=== PATIENT | female | born 2000 | race Caucasian/White ===

== ENCOUNTER 2021-01-05 07:04 | Outpatient (CLI) | payer OTHER, MEDICAID, SELFPAY ==
--- NOTE | 2021-01-05 07:11 | US_ITS ---
NOTE: Report was unsigned for reason: Order was edited. Original Signature date and time was: 01/05/21 @ 0917 WS: [id number] ULTRASOUND OB LIMITED TECHNIQUE: Complete ultrasound. CLINICAL INFORMATION: SUPERVISION NORMAL COMPARISON: None. FINDINGS: Cervix measures 3.5 CM. Single interuterine gestation is identified with vertex presentation. Placenta is anterior. Placenta grade 0. Normal amniotic fluid volume. cardiac activity: 150 BPM. AGA: 15w0d PRAVIN by ultrasound: 06/29/2021 Estimated weight: 109 g., %. BDP: 2.9 cm = 15w1d HC: 11.1 cm = 15w2d AC: 8.8 cm = 15w0d FEMUR LENGTH: 1.6 cm = 14w4d MTDD US/US OB >= 14 weeks fetus [id number] IMPRESSION: 1. Single intrauterine with visualized cardiac activity. AGA 15w0d w ith PRAVIN 06/29/2021. 2. Cervix is long and closed. 3. Placenta is anterior. No evidence of abruption or previa.. 4. Normal amniotic fluid volume.
== END 2021-01-05 07:05 | disposition home or self-care (01) ==
PROVIDERS: PCP Nurse Practitioner; Visit Provider Family Medicine
DX: Z34.00 Encounter for supervision of normal first pregnancy, unspecified trimester (principal)
CPT/HCPCS: 76801; 76805

== ENCOUNTER 2021-01-28 12:32 | Outpatient (CLI) | payer OTHER, MEDICAID, SELFPAY ==
--- NOTE | 2021-01-28 12:38 | US_ITS ---
WS: [id number] OBSTETRICAL ULTRASOUND COMPLETE HISTORY: ANATOMY COMPARISON: 01/05/2021 Single intrauterine gestation in Cephalic presentation. Cervix is Closed and normal length. Cervical length is 3.8 cm. Normal amount of amniotic fluid surrounds the fetus. Placenta: Anterior, no previa or abruption. Placenta grade 0 Heart: 157 BPM. Four chambers are identified. RIGHT and LEFT outflow tracts are unremarkable. Anatomy: Intracranial structures and spine are normal. kidneys, stomach and urinary bladd er are unremarkable. Abdominal wall, three-vessel cord and cord insertion site are normal. 4 extremities are present. profile: Unremarkable. Gender: Female. measurements: BPD = 4.1 cm = 18w3d HC = 15.4 cm = 18w3d AC = 12.0 cm = 17w5d FL = 2.5 cm = 17w5d EFW: 210 g. Biometry is internally concordant. AGA by ultrasound: 18w1d PRAVIN by ultrasound: 06/30/2021 US/US OB >= 14 weeks fetus [id number] IMPRESSION: 1. Single intrauterine gestation of 18w1d with an PRAVIN of 06/30/2021. Appropria te growth since the first trimester ultrasound. 2. Unremarkable screening survey of anatomy.
== END 2021-01-28 12:33 | disposition home or self-care (01) ==
LOC: RAD 12:34
PROVIDERS: PCP Nurse Practitioner; Visit Provider Family Medicine
DX: Z34.82 Encounter for supervision of other normal pregnancy, second trimester; Z3A.18 18 weeks gestation of pregnancy
CPT/HCPCS: 76805

== ENCOUNTER 2021-05-26 12:32 | Outpatient (CLI) | payer OTHER, MEDICAID, SELFPAY ==
[2021-05-26] VITALS (8 sets, daily range): BP systolic 87–142; BP diastolic 54–91; PULSE 90–210; RESP 17; TEMP 36.6; BMI 37.8
--- NOTE | 2021-05-26 13:01 | US_ITS ---
WS: [id number] BIOPHYSICAL PROFILE AMNIOTIC FLUID HISTORY: BPP and JOSE. Maternal hypertension COMPARISON: 01/28/2021 Cardiac activity: 164 bpm. Cervix: Obscured by the head. Placenta: Anterior, no previa or abruption. Placenta grade: 2 Parameters are as follows: Breathin Movement: 2 Tone: 2 Fluid volume: 2 Amniotic fluid index 17.2 cm which is near the 50th percentile. Largest vertical pocket of amniotic f luid 5.8 cm. US/US OB BPP wo NST [id number] IMPRESSION: 1. Biophysical profile score: 8/8. 2. Normal amniotic fluid index. 3. Normal cardiac activity.
[2021-05-26 13:29] LABS: Basophils % 0.3 %; Eosinophils # 0.1 10^3/uL (0.0-0.8); Eosinophils % 0.7 %; Hematocrit 32.6 % (37.0-47.0); Hemoglobin 10.5 g/dL (11.5-15.3); Lymphocytes # 0.9 10^3/uL (0.8-4.8); Lymphocytes % 12.2 %; Mean Corpuscular HGB Conc 32.2 g/dL (30.0-36.0); Mean Corpuscular Volume 86.9 fl (81-99); Mean Platelet Volume 10.6 fL (7.4-10.4); Monocytes # 0.5 10^3/uL (0.2-0.9); Monocytes % 7.6 %; Neutrophils # 5.51 10^3/uL (1.8-7.7); Neutrophils % 78.1 %; Nucleated Red Blood Cells % 0 %; Platelet Count 196 10^3/cmm (130-400); Red Blood Count 3.75 10^6/uL (4.1-5.3); Red Cell Distribution Width 17.3 % (12.1-15.1); White Blood Count 7.1 10^3/uL (4.0-10.0)
[2021-05-26 13:53] LABS: Alanine Aminotransferase 10 U/L (0-33); Albumin Level 3.7 g/dL (3.5-5.2); Alkaline Phosphatase 151 IU/L (35-105); Anion Gap 18.1 (5-19); Aspartate Amino Transferase 15 U/L (0-32); Blood Urea Nitrogen 7 mg/dL (6-20); Calcium 9.6 mg/dL (8.5-10.5); Carbon Dioxide 18 mmol/L (22-29); Chloride 105 mmol/L (98-107); Globulin 2.9 g/dL (1.3-4.6); Glomerular Filtration Rate 201.5 mL/min (90-130); Glucose 114 mg/dL (65-115); Osmolality Calculated 283 mOsm/kg (285-295); Potassium 4.1 mmol/L (3.5-5.1); Sodium 137 mmol/L (136-145); Total Bilirubin 0.2 mg/dL (0.15-1.2); Total Protein 6.6 g/dL (6.6-8.7); Uric Acid 4.7 mg/dL (2.4-5.7)
[2021-05-26 14:05] LABS: Add Urine Microscopic? YES; Bacteria Urine 2+ /hpf; Bilirubin Urine Neg (Negative); Blood Urine Neg (Negative); Glucose Urine UA 1+ (Normal); Ketones Urine Negative (Negative); Leukocyte Esterase Urine Negative (Negative); Mucus Urine 1+ /hpf; Nitrate Urine Negative (Negative); Protein Urine Neg (Negative); Squamous Epithelial Cell Urine 55-80 /hpf (0-5); Urine Appearance Cloudy (CLEAR); Urine Color Yellow (Yellow); Urobilinogen Urine Norm (Negative); WBC Urine 0-4 /hpf (0-5); pH Urine 5 (5-7)
[2021-05-26 14:06] LABS: Add Urine Culture? No
[2021-05-26 14:29] LABS: UPRO/UCREAT Ratio 0.14 mg/mg CR; Urine Creatinine 98 mg/dL (28-217); Urine Protein Random 14 mg/dL
== END 2021-05-26 14:30 | disposition home or self-care (01) ==
LOC: OPOB 12:33 → OBGYN 12:34
PROVIDERS: PCP Nurse Practitioner; Visit Provider Family Medicine
DX: O16.9 Unspecified maternal hypertension, unspecified trimester (principal); Z3A.00 Weeks of gestation of pregnancy not specified
CPT/HCPCS: 59025; 76819; 80053; 81001; 82570; 84156; 84550; 85025; 99211

== ENCOUNTER 2021-05-29 16:20 | Outpatient (CLI) | payer MEDICAID, SELFPAY ==
[2021-05-29 17:06] LABS: Total Volume, Urine 2100 mL; Urine Total Protein 8.9 mg/24HR (0-150); Urine Total Protein 24 Hour 186.9 mg/dL (0-150)
== END 2021-05-29 16:21 | disposition home or self-care (01) ==
PROVIDERS: PCP Nurse Practitioner; Visit Provider Family Medicine
DX: O09.93 Supervision of high risk pregnancy, unspecified, third trimester (principal); O13.9 Gestational [pregnancy-induced] hypertension without significant proteinuria, unspecified trimester
CPT/HCPCS: 84156

== ENCOUNTER 2021-06-01 10:20 | Outpatient (CLI) | payer MEDICAID, SELFPAY ==
[2021-06-01] VITALS (11 sets, daily range): BP systolic 132–153; BP diastolic 76–91; PULSE 73–105; BMI 37.5
--- NOTE | 2021-06-01 10:57 | US_ITS ---
WS: [id number] ULTRASOUND OB LIMITED TECHNIQUE: Limited ultrasound examination of the fetus. CLINICAL INFORMATION: Hypertension COMPARISON: May 26, 2021 FINDINGS: Cervix is long and closed measuring 4.5 CM Single interuterine gestation. presentation is vertex Placental location is anterior. Placenta grade: 1 heart rate 144 BPM. Normal JOSE 18.4 cm Anatomy: BDP: 9.0 cm = 36w3d HC: 32.1 cm = 36w2d AC: 32.0 cm = 35w6d FEMUR LENGTH: 7.1 cm = 36w1d Estimated weight: 2833 g., %. EGA by ultrasound: 36w1d PRAVIN by ultrasound: 06/28/2021 Biophysical profile 8 out of 8. breathin movement: 2 tone: 2 Amniotic fluid: 2 IMPRESSION 1. Normal biophysical profile 8 out of 8 2. Cervix is long and closed. 3. presentation is vertex with anterior placenta. 4. Normal JOSE 18.4 cm greater than the 50th percentile
--- NOTE | 2021-06-01 11:55 | ANES.PREANE2 ---
Pre-Anesthetic Assessment Height/Weight: Height 1.57 m Weight 92.986 kg Pulse BP 83 135/76 06/01/21 11:45 06/01/21 11:45 Preop Diagnosis: Planning of labor analgesia Epidural Familial anesthetic complications: none Was Beta Wanda taken within 24 hours: N/A Was Clonidine taken within 24 hours: N/A Last intake: Full stomach Social No alcohol and No tobacco Exam alert, oriented x 3, clear to auscultation bilaterally and regular rate & rhythm Airway Submandibular: within normal limits Cervical ROM: within normal limits Mallampati: Class II Dentition: full History/ROS No significant complaints Pulmonary None reported CV/HEM Hypertension (Gestational HTN) None reported Hepatic None reported GI None reported Metabolic None reported Musc/skel None reported Neuropsych None reported Anesthetic Plan ASA status: 2 Anesthesia: Anesthesia Evaluation, General and Regional (specify below) (Labor epidural) Other: I discussed with patient the risk and benefits of labor epidural including PDPH, hypotension, back pain/discomfort/bruising, catastrophic nerve injury including paralysis, abscess, hematoma, failed block, one sided block, and LAST. Patient consents to labor epidural and in case of emergency consents to general anesthesia. Risk of > 500 ml blood loss (7ml/kg in children): No Medications/Allergies Home Medications Medication Instructions Recorded Confirmed Last Taken Type triamcinolone acetonide 0.1 % 1 applic TOPICAL TID 14 Days #80 g 07/23/20 07/23/20 Unknown Rx topical cream Allergies Allergy/AdvReac Type Severity Reaction Status Date / Time No Known Allergies Allergy Unverified 07/23/20 09:03 [facility] Anesthesia Social History Smoking and tobacco status: never smoked Second hand smoke exposure: No Smoking risk assessment/counseling performed?: No Alcohol intake: never Desire information about alcohol rehabilitation?: No Counseling given: No Desire information about substance/drug rehabilitation?: No Counseling given: No Adopted: No Caregiver/support person: No Lives independently: Yes Household members: family Housing: House Marital status: Single Number of children: 0 Highest education level completed: High School Graduate service: No Current occupational status: employed Pets and animals: No History of recent travel: No Female Reproductive History : 1 Data Anesthesia Cardiac Studies: No Data to Display
== END 2021-06-01 12:30 | disposition home or self-care (01) ==
LOC: OPOB 10:27 → OBGYN 10:28
PROVIDERS: PCP Nurse Practitioner; Visit Provider Family Medicine
DX: O16.9 Unspecified maternal hypertension, unspecified trimester (principal); Z3A.36 36 weeks gestation of pregnancy
CPT/HCPCS: 59025; 76819; 99211

== ENCOUNTER 2021-06-04 10:15 | Outpatient (CLI) | payer MEDICAID, SELFPAY ==
[2021-06-04 10:18] VITALS: BMI 37.5
[2021-06-04 10:30] VITALS: BP 132/85; PULSE 98
[2021-06-04 10:47] VITALS: RESP 17
--- NOTE | 2021-06-04 10:47 | US_ITS ---
WS: [id number] ULTRASOUND OB LIMITED TECHNIQUE: Limited ultrasound examination of the fetus. CLINICAL INFORMATION: Increased blood pressure COMPARISON: None. FINDINGS: Closed cervix measuring 5.1 cm Single interuterine gestation. presentation is vertex heart rate 141 BPM. EGA : 36 weeks 3 days PRAVIN : June 29, 2021 Biophysical profile 8 out of 8. breathin movement: 2 tone: 2 Amniotic fluid: 2 IMPRESSION 1. Normal biophysical profile 8 out of 8 2. Cervix not well seen but appears closed measuring 5.1 cm 3. presentation is vertex. 4. JOSE 15.0 cm just above the median for gestational age.
[2021-06-04 10:57] VITALS: BP 140/87; PULSE 93
[2021-06-04 11:13] VITALS: BP 120/75; PULSE 85
[2021-06-04 11:28] VITALS: BP 134/87; PULSE 88
[2021-06-04 11:42] VITALS: BP 136/87; PULSE 93
== END 2021-06-04 11:53 | disposition home or self-care (01) ==
LOC: OPOB 10:17 → OBGYN 10:19
PROVIDERS: PCP Nurse Practitioner; Visit Provider Family Medicine
DX: O16.9 Unspecified maternal hypertension, unspecified trimester (principal); Z3A.00 Weeks of gestation of pregnancy not specified
CPT/HCPCS: 59025; 76815; 76819; 99211

== ENCOUNTER 2021-06-08 05:58 | Inpatient (IN) | payer MEDICAID, SELFPAY ==
[2021-06-08] VITALS (49 sets, daily range): BP systolic 113–173; BP diastolic 72–104; PULSE 88–139; RESP 16–18; TEMP 36.2–36.8; BMI 38.0
[2021-06-08 07:00] LABS: Basophils % 0.5 %; Eosinophils # 0.1 10^3/uL (0.0-0.8); Eosinophils % 0.8 %; Hematocrit 32.2 % (37.0-47.0); Hemoglobin 10.6 g/dL (11.5-15.3); Lymphocytes # 1.1 10^3/uL (0.8-4.8); Lymphocytes % 13.3 %; Mean Corpuscular HGB Conc 32.9 g/dL (30.0-36.0); Mean Corpuscular Hemoglobin 27.9 pg (28.0-34.0); Mean Corpuscular Volume 84.7 fl (81-99); Monocytes # 0.6 10^3/uL (0.2-0.9); Monocytes % 7.5 %; Neutrophils % 76.2 %; Nucleated Red Blood Cells % 0 %; Platelet Count 168 10^3/cmm (130-400); Red Cell Distribution Width 16.7 % (12.1-15.1); White Blood Count 8.3 10^3/uL (4.0-10.0)
[2021-06-08] MEDS: miSOPROStol 100 mcg tablet 25 MCG VAGINAL ×2 (07:11→12:49)
[2021-06-08 07:17] LABS: Alanine Aminotransferase 9 U/L (0-33); Albumin Level 3.6 g/dL (3.5-5.2); Alkaline Phosphatase 175 IU/L (35-105); Anion Gap 19.7 (5-19); Aspartate Amino Transferase 16 U/L (0-32); Blood Urea Nitrogen 9 mg/dL (6-20); Calcium 9.4 mg/dL (8.5-10.5); Carbon Dioxide 17 mmol/L (22-29); Chloride 102 mmol/L (98-107); Globulin 3.1 g/dL (1.3-4.6); Glomerular Filtration Rate 155.7 mL/min (90-130); Glucose 134 mg/dL (65-115); Osmolality Calculated 281 mOsm/kg (285-295); Potassium 3.7 mmol/L (3.5-5.1); Sodium 135 mmol/L (136-145); Total Bilirubin 0.2 mg/dL (0.15-1.2); Total Protein 6.7 g/dL (6.6-8.7); Uric Acid 5.9 mg/dL (2.4-5.7)
--- NOTE | 2021-06-08 08:19 | P.HP_ITS ---
Providers/Chief Complaint Admitting Physician: Alex Emanuel MD Primary Care Provider: CARLOS TaylorP-C Chief Complaint: induction hypertension pre-e History of Present Illness Janneth Singleton is a 20 year old at 37.0 weeks gestation by 15-week ultrasound with unsure LMP. Her is complicated by COVID-19 in early first trimester, UTI in first trimester, anemia, rubella nonimmune, gestational hypertension with intermittent severe features. The patient presents to labor and delivery for induction of labor secondary to gestational hypertension with intermittent severe features. The patient has been having increasing headaches with flashes of lights that come and go. She was nauseous this morning. Her blood pressures have been running in the 130s to 150s systolic at home. Her 24-hour urine protein has been increasing and was 285 on 06/06/2021. She is also having significant swelling and brisk reflexes. Due to these findings, it was felt best to proceed with induction of labor to decrease risk for progressing to preeclampsia. The patient denies any fevers, chest pain, cough, vomiting, diarrhea, constipation, dysuria, leakage of fluid, vaginal bleeding. Medications/Allergies Home Medications Medication Instructions Recorded Confirmed Last Taken Type labetalol 100 mg tablet 50 mg PO BID 06/08/21 06/08/21 06/08/21 05:30 History vitamins no.144-folic 1 tab PO DAILY 06/08/21 06/08/21 06/07/21 23:00 History acid 400 mcg chewable tablet () Allergies Allergy/AdvReac Type Severity Reaction Status Date / Time No Known Allergies Allergy Verified 06/08/21 06:51 PFSH Acute PFSH: Social History Smoking and tobacco status: never smoked Second hand smoke exposure: No Smoking risk assessment/counseling performed?: No Alcohol intake: never Desire information about alcohol rehabilitation?: No Counseling given: No Desire information about substance/drug rehabilitation?: No Counseling given: No Adopted: No Caregiver/support person: No Lives independently: Yes Household members: family Housing: House Marital status: Single Number of children: 0 Highest education level completed: High School Graduate service: No Current occupational status: employed Pets and animals: No History of recent travel: No Female Reproductive History: : 1 Vitals/I&O/Wt Last Vital Signs Temp 97.2 F L 06/08/21 06:52 Pulse 93 06/08/21 08:13 Resp 18 06/08/21 07:50 BP 140/79 06/08/21 08:13 Weight last 48 hrs Weight 208 lb Physical Exam Narrative: General: Alert and oriented x3 Eyes: Pupils equal round and reactive to light and accommodation Mouth: Mucous membranes moist, pharynx non-erythematous Cardiac: Regular rate and rhythm without murmurs Lungs: Clear to auscultation bilaterally without wheezes, crackles or rhonchi Abdomen: Soft, non-tender, fundus consistent with gestational age Extremities: Trace edema in the bilateral lower extremities. Brisk reflexes in the bilateral lower extremities Data : 06/08/21 06:35 06/08/21 06:35 A&P Assessment and plan (1) Rubella non-immune status, antepartum: Status: Acute (2) Anemia: Status: Acute (3) Gestational hypertension: Status: Acute (4) Intrauterine : Status: Acute Plan The patient is doing well at this time. Her blood pressure is 140/79. heart tones are in the mid 140s with moderate variability and good accelerations. She is having sporadic contractions. The patient will be given Cytotec for induction of labor as she is closed, thick and high. Laboring epidural okay at 3 to 4 cm. Antihypertensive protocol will be started as needed. If she becomes more symptomatic or her blood pressures are increasing, we will start IV magnesium. All questions were answered. The patient is in agreement with the current plan of care. Attestations Medical Necessity Statement*: The patient will be here for greater than 2 midnights due to routine intrapartum and management of labor and delivery. Coding Level of Care Code Acute Online Facilitator for Chg Fwd Diagnoses Rubella non-immune status, antepartum O99.891; Z28.3 Anemia D64.9 Gestational hypertension O13.9 Intrauterine Z34.90
[2021-06-09] VITALS (193 sets, daily range): BP systolic 95–178; BP diastolic 49–114; PULSE 57–131; TEMP 36.4; O2SAT 96–100
[2021-06-09] MEDS: dextrose 5%-lactated ringers 1,000 ML 125 ML IV (01:31)
[2021-06-09] MEDS: oxytocin 30 UNIT/500 ML BAG IV (01:31)
--- NOTE | 2021-06-09 07:54 | P.PN_ITS ---
Subjective Subjective: The patient is feeling well. She denies any headaches. Her contractions are starting to increase in pain. They are still tolerable without pain medications. The patient received 2 doses of Cytotec and changed to 1 cm dilation with 70% effacement and her contractions continued to be close toget her. Because of this a third dose was not placed. Since she was no longer making change, IV Pitocin was started to augment labor. Vitals/I&O/Wt Last Vital Signs Temp 98.3 F 06/08/21 18:01 Pulse 84 06/09/21 07:51 Resp 18 06/08/21 18:45 BP 141/85 06/09/21 07:51 06/08/21 06/09/21 06/09/21 22:59 06:59 14:59 Intake Total 10.483 / 10.483 Balance 10.483 / 10.483 Weight last 48 hrs Weight 208 lb Physical Exam Narrative: General: Alert and oriented x3 Cardiac: Regular rate and rhythm without murmurs Lungs: Clear to auscultation bilaterally without wheezes, crackles or rhonchi Abdomen: Soft, non-tender, fundus consistent with gestational age Extremities: Trace edema in the bilateral lower extremities.? Brisk reflexes in the bilateral lower extremities Data : 06/08/21 06:35 06/08/21 06:35 A&P Assessment and plan (1) Rubella non-immune status, antepartum: Status: Acute (2) Anemia: Status: Acute (3) Gestational hypertension: Status: Acute (4) Intrauterine : Status: Acute Plan The patient is current on IV Pitocin at 9 units. She is brianna every 2 to 3 minutes. She has a category 1 tracing with heart tones in the mid 140s with moderate variability good accelerations. Blood pressures are currently in the 130s and 140s systolic. She does not have any severe features at this time. We will proceed with IV Pitocin. I checked her and she is currently 2 cm dilated and 70% effaced. The head is well applied and there is a bulging bag. If she does not make significant change by the afternoon, we may consider a Kowalski bulb. Will be patient with Pitocin for now. All questions answered the patient is in agreement with current plan of care. Attestations Medical Necessity Statement*: The patient continues to need inpatient care and will be here for greater than 2 midnights. Coding Level of Care Code Acute Charge Auditor for Chg Fwd Diagnoses Rubella non-immune status, antepartum O99.891; Z28.3 Anemia D64.9 Gestational hypertension O13.9 Intrauterine Z34.90
[2021-06-09] MEDS: butorphanol 2 mg/mL SDV 1 mL 1 MG IVP ×2 (10:42→15:35)
[2021-06-09] MEDS: lactated ringers 1,000 ML 999 ML IV ×2 (17:23→20:10)
--- NOTE | 2021-06-09 17:47 | P.ANESUD_ITS ---
Pre-Anesthetic Update Pre-Anesthetic Assessment: Date of Surgery/Procedure: 06/09/21 Preop Ángela gnosis: Planning of labor analgesia Any changes to Pre-Anesthetic Assessment?: No Labs Last 48hrs: Short CBC 06/08/21 Range/Units 06:35 WBC 8.3 (4.0-10.0) 10^3/ uL Hgb 10.6 L (11.5-15.3) g/dL Hct 32.2 L (37.0-47.0) % MCV 84.7 (81-99) fl Plt Count 168 (130-400) 10^3/c mm Neut % (Auto) 76.2 % Neut # (Auto) 6.30 (1.8-7.7) 10^3/u L BMP 06/08/21 06:35 Sodium 135 L Potassium 3.7 Chloride 102 Carbon Dioxide 17 L BUN 9 Creatinine 0.5 Glucose 134 H Calcium 9.4 Liver Function 06/08/21 Range/Units 06:35 Total Bilirubin 0.2 (0.15-1.2) mg/dL AST 16 (0-32) U/L ALT 9 (0-33) U/L Alkaline Phosphata se 175 H (35-105) IU/L Albumin 3.6 (3.5-5.2) g/dL Vitals: Temperature 98.3 F 06/08/21 18:01 Temperature Source Temporal Artery S can 06/08/21 06:52 Pulse Rate 76 06/09/21 17:46 Pulse Rhythm 06/08/21 05:57 Pulse Strength 3+ Normal 06/08/21 05:57 Respiratory Rate 18 06/08/21 18:45 Respiratory Effort Non-Labored 06/08/21 05:57 Respiratory Depth Normal 06/08/21 05:57 Respiratory Patter n 06/08/21 05:57 Blood Pressure 100/52 06/09/21 17:46 Pulse Oximetry 97 06/09/21 17:41 Oxygen Delivery Me thod 06/08/21 05:57 Exam: Pre-Anes Outpt Exam: alert, oriented x 3, clear to auscultation bilaterally and regular rate & rhythm Cardiac Studies: No Data to Display Anesthesia Procedures Epidural: Time Out Performed: Yes Consents Signed: Procedure Consent Lumbar Level: L3-L4 Epidural position: sitting Epidural procedure: sterile prep of area, 1% lidocaine to numb the area, 18 g needle, neg for paresthesia, test dose given, 1.5% xylocaine 1:200k epi, no systemic response and sterile dressing applied Additional Comments: LIANNE at 7cm, cath at 9cm, 5mls of 2%lido PF through needle....when catheter passed palpable pop felt, able to aspirate fluid , pulled back to 9cm unable to aspirate fluid but I question SAB catheter b/c patient with symptoms of spinal difficult to tell if from loading dose through needle or test dose of catheter. Will reassess.
--- NOTE | 2021-06-09 20:37 | P.ANES_ITS ---
Anesthesia Procedures Procedure/Date: 06/09/21 Epidural: Time Out Performed: Yes Consents Signed: Procedure Consent Consent: from patient, risks and benefits reviewed and patient agrees to proceed Lumbar Level: L3-L4 Epidural position: sitting Epidural procedure: sterile prep of area, 1% lidocaine to numb the area, 18 g needle, neg for parest hesia, test dose given, 1.5% xylocaine 1:200k epi, 0.2% Ropivacaine bolus ml, placed PCEA, no systemic response, sterile dressing applied, L.U.D. no apparent complications and 0.2% Ropiavacaine @ mls/hr (13cc/hour)
[2021-06-10] VITALS (67 sets, daily range): BP systolic 110–204; BP diastolic 18–109; PULSE 83–127; RESP 16–20; TEMP 36.1–37.3; O2SAT 96–99
[2021-06-10] MEDS: diphenhydrAMINE 50 mg/mL SDV 1mL IVP (01:20)
[2021-06-10] MEDS: labetalol 5 mg/mL SDV 20mL 20 MG IVP (01:32)
[2021-06-10] MEDS: dextrose 5%-lactated ringers 1,000 ML 125 ML IV (02:20)
--- NOTE | 2021-06-10 05:07 | P.MISC_ITS ---
Miscellaneous Note Note: The patient has made slow change throughout the labor process. She was 4 cm dilated at 7:30 PM on 06/09/2021. She made gradual change and was 9 cm by 1:50 AM on 06/10/2021. Unfortunately she is now stalling and no longer making cervical change. We have tried multiple position changes and despite this, she remains at anterior lip and -1 station with contraction. Due to the concerns that there could be cephalopelvic disproportion, increased risk for shoulder dystocia and for third or fourth degree laceration, it is felt best to proceed with a primary low transverse section. heart tones are in the mid 150s with moderate variability good accelerations. The has a cat egory 1 tracing. The patient is in agreement with proceeding with a section. The indication is arrest of dilation.
[2021-06-10] MEDS: lactated ringers 1,000 ML 999 ML IV (05:22)
[2021-06-10] MEDS: citric acid-sodium citrate 30 mL UDC PO (05:36)
[2021-06-10] MEDS: metoclopramide 5 mg/mL SDV 2 mL 10 MG IVP (05:36)
[2021-06-10] MEDS: famotidine 20 mg/2 mL INJ IVP (05:36)
--- NOTE | 2021-06-10 06:39 | P.ANESUD_ITS ---
Pre-Anesthetic Update Pre-Anesthetic Assessment: Date of Surgery/Procedure: 06/10/21 Preop Ángela gnosis: Planning of labor analgesia Proposed Procedure: Operation Date: 06/10/21 06:10 Proposed Procedures p Section(Not Applicable) - Alex Emanuel MD Any changes to Pre-Anesthetic Assessment?: Yes Changes from Pre-Anesthetic Assessment: Laboring patient with epidural to C/S Labs Last 48hrs: Short CBC 06/08/21 Range/Units 06:35 WBC 8.3 (4.0-10.0) 10^3/ uL Hgb 10.6 L (11.5-15.3) g/dL Hct 32.2 L (37.0-47.0) % MCV 84.7 (81-99) fl Plt Count 168 (130-400) 10^3/c mm Neut % (Auto) 76.2 % Neut # (Auto) 6.30 (1.8-7.7) 10^3/u L BMP 06/08/21 06:35 Sodium 135 L Potassium 3.7 Chloride 102 Carbon Dioxide 17 L BUN 9 Creatinine 0.5 Glucose 134 H Calcium 9.4 Liver Function 06/08/21 Range/Units 06:35 Total Bilirubin 0.2 (0.15-1.2) mg/dL AST 16 (0-32) U/L ALT 9 (0-33) U/L Alkaline Phosphata se 175 H (35-105) IU/L Albumin 3.6 (3.5-5.2) g/dL Vitals: Temperature 99.2 F 06/10/21 00:32 Temperature Source Axillary 06/10/21 00:32 Pulse Rate 98 06/10/21 05:38 Pulse Rhythm 06/08/21 05:57 Pulse Strength 3+ Normal 06/08/21 05:57 Respiratory Rate 18 06/08/21 18:45 Respiratory Effort Non-Labored 06/08/21 05:57 Respiratory Depth Normal 06/08/21 05:57 Respiratory Patter n 06/08/21 05:57 Blood Pressure 166/88 06/10/21 05:38 Pulse Oximetry 99 06/09/21 23:04 Oxygen Delivery Me thod 06/08/21 05:57 Exam: Pre-Anes Outpt Exam: alert, oriented x 3, clear to auscultation bilaterally and regular rate & rhythm Cardiac Studies: No Data to Display
[2021-06-10] MEDS: clindamycin 900 MG/50 ML PREMIX 100 MG IV ×3 (06:59→23:52)
--- NOTE | 2021-06-10 08:00 | P.OP_ITS ---
Operative Report Date of procedure: June 10, 2021 Pre-op diagnosis: 1. Intrauterine at 37.2 weeks gestation 2. COVID-19 in early first trimester 3. UTI in first trimester 4. Anemia 5. Rubella nonimmune 6. Gestational hypertension with intermittent severe features 7. Arrest of dilation with concern for OP positioning versus cephalo-pelvic disproportion Preop Diagnosis Planning of labor analgesia Post-op diagnosis: 1. Intrauterine status post primary low transverse section at 37.2 wee primary gestation 2. COVID-19 in early first trimester 3. UTI in first trimester 4. Anemia 5. Rubella nonimmune 6. Gestational hypertension with intermittent severe features 7. Arrest of dilation secondary to OP positioning of head 8. Delivery of female weighing 6 pounds 3 ounces Procedure done: Primary low transverse section Surgeon: Alex Emanuel MD Estimated blood loss: 1000 ml Complications: None Findings: Janneth Singleton is a 20 year old G1 now P1 status post primary low transverse section at 37.0 weeks gestation by 15-week ultrasound with unsure LMP.? Her was complicated by COVID-19 in early first trimester, UTI in first trimester, anemia, rubella nonimmune, gestational hypertension with intermittent severe features. 1. OP positioning of head 2. Intact placenta with a central umbilical cord insertion site 3. female needing respiratory support most likely due to TTN Brief History: The patient was brought in for induction of labor on the morning of 06/08/2021 due to gestational hypertension with intermittent severe features. She was given 2 doses of Cytotec and began to contract regularly. The patient was then given IV Pitocin to augment labor. She received a laboring epidural. She was comfortable from this. SROM took place at 15:40 on 06/09/2021. The fluid was clear. The patient continued to make slow but steady change and was 9 cm by 1:50 AM on 06/10/2021.? Unfortunately she no longer made cervical change.? We tried multiple position changes and despite this, she remained an anterior lip and -1 station with contractions. Due to the concerns that there could be cephalopelvic disproportion, increased risk for shoulder dystocia and other related complications, it was felt best to proceed with a primary low transverse section.? heart tones were in the mid 150s with moderate variability good accelerations.? The had a category 1 tracing.? Procedure: After informed consent was obtained, the patient was taken to the operating room and the patient was prepped and draped in a normal sterile fashion in the dorsal supine position.? The epidural was bolused and adequate anesthesia was obtained.? At 6:04 AM on 06/10/2021 a Pfannenstiel skin incision was made and carried through to the underlying layer of fascia using a scalpel.? The fascial incision was then extended laterally using curved Mayos.? The fascia was then grasped with Dez clamps and the underlying rectus muscles were dissected off taking care to avoid injury to the underlying tissues.? The peritoneum was entered bluntly with one digit.? It was then bluntly.? The bladder blade was placed and the vesicouterine peritoneum was well below the lower uterine segment of the uterus.? The uterine incision was made in the lower uterine segment in a transverse fashion with the scalpel at 6:08 AM. The amniotic membrane was entered bluntly and a small amount of clear fluid was noted.? Uterine pressure was placed and the infant's head delivered without complication at 6:09 AM on 06/10/2021. The head was noted to be in the OP position. There was no nuchal cord.? The mouth and nose were suctioned.? The rest of the infant delivered without difficulty.? The infant took a few breaths immediately upon delivery.? The cord was clamped and cut and the infant was handed to the awaiting pediatric nurses.? The placenta was then manually expressed.? The uterus was exteriorized from the abdomen. A wet lap was used to clear the uterus of clots and debris.? The bladder blade was reinserted and the uterine incision was closed using 0 chromic in a running locking fashion.? The uterus was noted to be boggy, so TXA was given. The uterus did firm up shortly after this. A second layer of the same suture was used in the same manner.? Excellent hemostasis was obtained. Next the posterior cul-de-sac was inspected and was cleared of any blood. The gutters were cleared of any further clots and debris and the uterine incision was again inspected and hemostasis was noted.? The subfascial tissue was inspected for hemostasis and the peritoneum was re-approximated using 0 chromic in a running fashion.? The fascia was then re-approximated using 0 Vicryl in a running fashion.? The subcutaneous tissue was inspected for hemostasis.? Scarp a's fascia was then re-approximated using 3-0 plain in a running fashion.? Good hemostasis was noted.? The subcutaneous tissue was then re-approximated using a subcuticular stitch.? The patient tolerated the procedure well and was recovered in stable condition.? Estimated blood loss was 1000 mL. Urine in the Kowalski catheter was clear. The patient was taken to recovery in good condition.
[2021-06-10] MEDS: magnesium sulfate premix 4 GM/100 ML PREMIX IV (08:22)
[2021-06-10] MEDS: magnesium sulfate premix 20 GM/500 ML BAG IV ×2 (08:42→18:58)
[2021-06-10 10:47] LABS: Magnesium Level (OB Only) 3.6 mg/dL (5.0-7.5)
[2021-06-10] MEDS: ketorolac 30 mg/mL INJ IVP ×2 (11:35→18:57)
[2021-06-10] MEDS: dextrose 5%-lactated ringers 1,000 ML 75 ML IV (15:46)
[2021-06-10] MEDS: ferrous sulfate EC 325 mg Tablet PO (18:58)
[2021-06-10 23:22] LABS: Magnesium Level (OB Only) 6.9 mg/dL (5.0-7.5)
[2021-06-11] VITALS (12 sets, daily range): BP systolic 112–136; BP diastolic 68–91; PULSE 85–102; RESP 14–17; TEMP 36.5–36.9; O2SAT 96–99
[2021-06-11 00:31] LABS: Hematocrit 25.5 % (37.0-47.0); Hemoglobin 8.3 g/dL (11.5-15.3); Mean Corpuscular HGB Conc 32.5 g/dL (30.0-36.0); Mean Corpuscular Hemoglobin 27.7 pg (28.0-34.0); White Blood Count 12.1 10^3/uL (4.0-10.0)
[2021-06-11 00:32] LABS: Mean Platelet Volume 10.9 fL (7.4-10.4); Platelet Count 162 10^3/cmm (130-400); Red Cell Distribution Width 17.2 % (12.1-15.1)
[2021-06-11] MEDS: ketorolac 30 mg/mL INJ IVP (01:37)
[2021-06-11 05:14] LABS: Magnesium Level (OB Only) 7.1 mg/dL (5.0-7.5)
[2021-06-11] MEDS: dextrose 5%-lactated ringers 1,000 ML 75 ML IV (05:33)
[2021-06-11] MEDS: magnesium sulfate premix 20 GM/500 ML BAG IV (05:33)
[2021-06-11] MEDS: prenatal vitamin Capsule 1 CAP PO (08:18)
[2021-06-11] MEDS: ferrous sulfate EC 325 mg Tablet PO ×2 (08:19→17:46)
[2021-06-11] MEDS: docusate sodium 100 mg Capsule PO ×2 (08:19→17:46)
[2021-06-11] MEDS: clindamycin 900 MG/50 ML PREMIX 100 MG IV (08:22)
--- NOTE | 2021-06-11 08:32 | ANE.PACU2 ---
Inpatient post-anesthesia follow up: Airway intact: Yes Vital signs: Temperature 97.7 F Pulse Rate 94 Respiratory Rate 16 Blood Pressure 129/77 Pulse Oximetry 96 Oxygen Delivery Me thod Room Air Oxygen Flow Rate Fraction of Inspir ed Oxygen Hydration adequate: Yes Nausea and vomiting: No Pain level: 2 Mental status: Baseline Additional Comments: No c/o of postural H/A, discussed possibility of PDPH and treatment since obvious intrathecal cath placement on initial epidural placement
[2021-06-11] MEDS: oxyCODONE-APAP 5-325 mg Tablet PO (12:44)
--- NOTE | 2021-06-11 18:18 | PM.PN ---
Subjective Subjective: The patient was placed on IV magnesium shortly after delivery as her pressures were elevating again. She was kept on this for 24 hours. Her blood pressures have improved and her urine output is increasing well. She is starting to ambulate. She is not voiding since having the catheter out. She has not passed gas yet. She is tolerating liquids currently. Her bleeding is decreasing well. Her pain is well controlled. Vitals/I&O/Wt Last Vital Signs Temp 98.0 F 06/11/21 15:53 Pulse 95 06/11/21 15:53 Resp 16 06/11/21 15:53 BP 112/68 06/11/21 15:53 Pulse Ox 98 06/11/21 15:53 06/11/21 06/11/21 06/11/21 06:59 14:59 22:59 Intake Total 1550 / 3400 50 / 50 Output Total 1255 / 5455 1800 / 1800 200 / 2000 Balance 295 / -2055 -1750 / -1750 -200 / -1950 Physical Exam Narrative: General: Alert and oriented x3 Cardiac: Regular rate and rhythm without murmurs Lungs: Clear to auscultation bilaterally without wheezes, crackles or rhonchi Abdomen: Soft, mild tenderness over uterus. The uterus is firm and 2 cm below the umbilicus. Incision is clean and dry without signs of infection or dehiscence. Extremities: +1 pitting edema in the bilateral lower extremities Urinary Catheter Management: Kowalski: Cath Placed During This Visit: yes, but has since been removed by the nurse Reason for Continuing Indwelling Catheter: Decision to DC Catheter Urinary Catheter Date of Insertion: 06/09/21 Urinary Catheter Time of Insertion: 19:13 Date Urinary Catheter Removed: 06/11/21 Time Urinary Catheter Discontinued: 12:30 Data : 06/10/21 23:48 06/08/21 06:35 A&P Assessment and plan (1) Gestational hypertension: Status: Acute Qualifiers: Trimester: third trimester Qualified Code(s): O13.3 - Gestational [-induced] hypertension without significant proteinuria, third trimester (2) Delivery by section: Status: Acute (3) Anemia: The patient's hemoglobin decreased from 10.6 to 8.3. We will start iron twice a day and follow. Status: Acute (4) Rubella non-immune status, antepartum: Status: Acute Plan The patient was started on IV magnesium and this was stopped at 24 hours. She is doing well off of the magnesium at this time. She is still not voided yet or passed gas. We will watch for these to happen. Her blood pressures are currently well controlled. She was given IV clindamycin for 24 hours to decrease risk for secondary infection secondary to having rupture of membranes prior to delivery by . So far she is showing no signs of infection. We will plan to follow and discharge home tomorrow or Monday depending on her course. Routine care discussed. All questions were answered. Attestations Medical Necessity Statement*: The patient will be here for greater than 2 midnights due to routine post care and management after gestational hypertension with intermittent severe features.. 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
[2021-06-11] MEDS: ibuprofen 800 mg tablet PO (21:54)
[2021-06-12 04:13] VITALS: BP 110/73; PULSE 90; RESP 16; TEMP 36.6; O2SAT 96
--- NOTE | 2021-06-12 08:54 | P.DS_ITS ---
Discharge Providers Date of Admission: 06/08/21 05:58 Date of Discharge: June 12, 2021 Attending Provider at Admission: Alex Emanuel MD Attending Provider at Discharge: Alex Emanuel MD Primary Care Provider: NIRAJ Taylor Diagnoses at Discharge Discharge Diagnosis (1) Gestational hypertension: Status: Acute Qualifiers: Trimester: third trimester Qualified Code(s): O13.3 - Gestational [-induced] hypertension without significant proteinuria, third trimest er (2) Delivery by section: Status: Inactive Permanent problem details: Due to OP head positioning (3) Anemia: Status: Acute (4) Rubella non-immune status, antepartum: Status: Acute Other Information Additional DC diagnoses/information: 1.? Intrauterine status post primary low transverse section at 37.2 wee primary gestation 2.? COVID-19 in early first trimester 3.? UTI in first trimester 4.? Anemia 5.? Rubella nonimmune 6.? Gestational hypertension with intermittent severe features 7.? Arrest of dilation secondary to OP positioning of head 8.? Delivery of female weighing 6 pounds 3 ounces Janneth Singleton is a 20 year old G1 now P1 status post primary low transverse section at 37.0 weeks gestation by 15-week ultrasound with unsure LMP.? Her was complicated by COVID-19 in early first trimester, UTI in first trimester, anemia, rubella nonimmune, gestational hypertension with intermittent severe features. 1.? OP positioning of head 2.? Intact placenta with a central umbilical cord insertion site 3.? female needing respiratory support most likely due to TTN Brief History: ? Reason for Visit Reason for Visit: induction hypertension pre-e Hospital Course Hospital Course The patient was brought in for induction of labor on the morning of 06/08/2021 due to gestational hypertension with intermittent severe features.? She was given 2 doses of Cytotec and began to contract regularly.? The patient was then given IV Pitocin to augment labor.? She received a laboring epidural.? She was comfortable from this.? SROM took place at 15:40 on 06/09/2021.? The fluid was clear.? The patient continued to make slow but steady change and was 9 cm by 1:50 AM on 06/10/2021.? Unfortunately she no longer made cervical change.? We tr ied multiple position changes and despite this, she remained an anterior lip and -1 station with contractions. Due to the concerns that there could be cephalopelvic disproportion, increased risk for shoulder dystocia and other related complications, it was felt best to proceed with a primary low transverse section.? heart tones were in the mid 150s with moderate variability and good accelerations.? The had a category 1 tracing. The patient had a primary low transverse section and did not have any significant complications related to this. The patient is doing well and her bleeding is well controlled. Her incision site is clean and dry without signs of infection or dehiscence. Her pain is under good control. She is ambulating, voiding, and tolerating liquids by mouth. We will check to be sure that she is able to tolerate solids prior to discharge. Routine discharge instructions were discussed including care. All questions were a nswered. The patient is in agreement with discharge home this afternoon as long as she is tolerating food by mouth. She will follow-up with me in clinic for the next few days to follow-up on her blood pressure and incision site. Physical Exam Narrative: General: Alert and oriented x3 Cardiac: Regular rate and rhythm without murmurs Lungs: Clear to auscultation bilaterally without wheezes, crackles or rhonchi Abdomen: Soft, mild tenderness over uterus.? The uterus is firm and 2 cm below the umbilicus.? Incision is clean and dry without signs of infection or dehiscence. Extremities: +1 pitting edema in the bilateral lower extremities Urinary Catheter Management: Kowalski: Cath Placed During This Visit: yes, but has since been removed by the nurse Reason for Continuing Indwelling Catheter: Decision to DC Catheter Urinary Catheter Date of Insertion: 06/09/21 Urinary Catheter Time of Insertion: 19:13 Date Urinary Catheter Removed: 06/11/21 Time Urinary Catheter Discontinued: 12:30 Discharge Data Studies Completed and Pending Laboratory Results WBC 12.1 10^3/uL (4.0-10.0) H 06/10/21 23:48 RBC 3.00 10^6/uL (4.1-5.3) L 06/10/21 23:48 Hgb 8.3 g/dL (11.5-15.3) L 06/10/21 23:48 Hct 25.5 % (37.0-47.0) L 06/10/21 23:48 MCV 85.0 fl (81-99) 06/10/21 23:48 MCH 27.7 pg (28.0-34.0) L 06/10/21 23:48 MCHC 32.5 g/dL (30.0-36.0) 06/10/21 23:48 RDW 17.2 % (12.1-15.1) H 06/10/21 23:48 Plt Count 162 10^3/cmm (130-400) 06/10/21 23:48 MPV 10.9 fL (7.4-10.4) H 06/10/21 23:48 Neut % (Auto) 76.2 % 06/08/21 06:35 Lymph % (Auto) 13.3 % 06/08/21 06:35 Tate % (Auto) 7.5 % 06/08/21 06:35 Eos % (Auto) 0.8 % 06/08/21 06:35 Baso % (Auto) 0.5 % 06/08/21 06:35 Neut # (Auto) 6.30 10^3/uL (1.8-7.7) 06/08/21 06:35 Lymph # (Auto) 1.1 10^3/uL (0.8-4.8) 06/08/21 06:35 Tate # (Auto) 0.6 10^3/uL (0.2-0.9) 06/08/21 06:35 Eos # (Auto) 0.1 10^3/uL (0.0-0.8) 06/08/21 06:35 Baso # (Auto) 0.0 10^3/uL (0.0-0.1) 06/08/21 06:35 Nucleated RBC % (auto) 0 % 06/08/21 06:35 Nucleated RBCs # 0.0 /100WBC 06/08/21 06:35 Sodium 135 mmol/L (136-145) L 06/08/21 06:35 Potassium 3.7 mmol/L (3.5-5.1) 06/08/21 06:35 Chloride 102 mmol/L (98-107) 06/08/21 06:35 Carbon Dioxide 17 mmol/L (22-29) L 06/08/21 06:35 Anion Gap 19.7 (5-19) H 06/08/21 06:35 BUN 9 mg/dL (6-20) 06/08/21 06:35 Creatinine 0.5 mg/dL (0.5-0.9) 06/08/21 06:35 GFR Calculation 155.7 mL/min (90-130) H 06/08/21 06:35 Glucose 134 mg/dL (65-115) H 06/08/21 06:35 Calculated Osmolality 281 mOsm/kg (285-295) L 06/08/21 06:35 Uric Acid 5.9 mg/dL (2.4-5.7) H 06/08/21 06:35 Calcium 9.4 mg/dL (8.5-10.5) 06/08/21 06:35 Magnesium 7.1 mg/dL (5.0-7.5) 06/11/21 04:25 Total Bilirubin 0.2 mg/dL (0.15-1.2) 06/08/21 06:35 AST 16 U/L (0-32) 06/08/21 06:35 ALT 9 U/L (0-33) 06/08/21 06:35 Alkaline Phosphatase 175 IU/L (35-105) H 06/08/21 06:35 Total Protein 6.7 g/dL (6.6-8.7) 06/08/21 06:35 Albumin 3.6 g/dL (3.5-5.2) 06/08/21 06:35 Globulin 3.1 g/dL (1.3-4.6) 06/08/21 06:35 Vitals Last Vital Signs Temp 97.9 F 06/12/21 04:13 Pulse 90 06/12/21 04:13 Resp 16 06/12/21 04:13 BP 110/73 06/12/21 04:13 Pulse Ox 96 06/12/21 04:13 Discharge Plan Discharge Patient Disposition: Home Condition: Good Prescriptions: New oxycodone-acetaminophen 5-325 mg Tablet 1 tab PO Q6H PRN (Reason: Moderate To Severe Pain) Qty: 20 0RF docusate sodium 100 mg Capsule 100 mg PO BID Qty: 30 0RF ferrous sulfate 325 mg (65 mg iron) Tablet,Delayed Release (Dr/Ec) 325 mg PO BIDWM Qty: 60 0RF ibuprofen 800 mg Tablet 800 mg PO TID Qty: 60 0RF Continued 400 mcg Tablet,Chewable 1 tab PO DAILY 0RF Discontinued labetalol 100 mg tablet 50 mg PO BID 0RF Discharge Orders: Discharge Order (Routine); Ordered 06/12/21 Ordered By: Alex Emanuel Referrals: Alex Emanuel MD [Physician] - 1-3 days Discharge Diet: Regular Discharge Activity: Limit activity as instructed Patient Instructions: Depression (DC), Bleeding (DC), P reeclampsia and Eclampsia After Delivery (GEN), (DC), OB Discharge Report, OB Food/Drug Interaction Guide, OB Care at Home, Opioid Safety, OB Home Care, OB [facility], Abnormal Bleeding Activity Restrictions/Additional Instructions: Do not lift anything heavier than your infant in the car seat for the first 3 we eks, then gradually increase. No driving for 2 weeks. If you have any concern for infection in your incision site, please seek immediate medical attention. Nothing per vagina for 6 weeks. Discharge Attestations Time Spent in Discharge Care*: greater than 30 min Quality Metrics Clinical Quality Measures [ No reported AMI, CVA or VTE this stay] Coding Level of Care Code Acute Chg FW DC note Diagnoses Gestational hypertension O13.3 Trimester: third trimester Delivery by section Anemia D64.9 Rubella non-immune status, antepartum O99.891; Z28.3
[2021-06-12 09:09] VITALS: RESP 18
[2021-06-12] MEDS: oxyCODONE-APAP 5-325 mg Tablet PO (09:09)
[2021-06-12] MEDS: ibuprofen 800 mg tablet PO (09:09)
[2021-06-12] MEDS: prenatal vitamin Capsule 1 CAP PO (09:09)
[2021-06-12] MEDS: docusate sodium 100 mg Capsule PO (09:09)
[2021-06-12] MEDS: ferrous sulfate EC 325 mg Tablet PO (09:09)
--- NOTE | 2021-06-12 10:39 | PC.NURSE ---
Patient aware of her non-immune rubella status. This nurse explained why we give a booster and patient refused the booster. notified.
[2021-06-12 11:01] VITALS: BP 137/81; PULSE 86; RESP 16; TEMP 36.7
[2021-06-12 12:11] VITALS: BP 131/87; PULSE 92; RESP 18
[2021-06-12 12:12] VITALS: BP 131/87; PULSE 92; RESP 18
--- NOTE | 2021-06-17 17:14 | ANES.PROC ---
Anesthesia Procedures Procedure/Date: 06/17/21 Epidural Blood Patch Epidural: Time Out Performed: Yes Consents Signed: Procedure Consent Lumbar Level: L3-L4 Epidural position: sitting Epidural procedure: sterile prep of area, 1% lidocaine to numb the area and 18 g needle Additional Comments: Patient c/o of PDPH after known intrathecal catheter placement. LIANNE at 4.5cm, 20mls of blood drawn from right forearm (after multiple attempts) in sterile fashion. All 20mls of blood injected into epidural space with improvement of symptoms and minimal back discomfort.
== END 2021-06-12 12:23 | disposition home or self-care (01) | DRG 788 ==
LOC: OPOB 06:04 → OBGYN 06:05 → OPOB 06:23 → OBGYN 06:23
PROVIDERS: Admitting Provider Family Medicine; PCP Nurse Practitioner; Visit Provider Family Medicine
PROC: 10D00Z1 Extraction of Products of Conception, Low, Open Approach (ICD-10-PCS; CPT 59514; principal; 2021-06-10 06:10)
DX: O13.4 Gestational [pregnancy-induced] hypertension without significant proteinuria, complicating childbirth (principal); O99.02 Anemia complicating childbirth; D64.9 Anemia, unspecified; O62.0 Primary inadequate contractions; Z3A.37 37 weeks gestation of pregnancy; Z37.0 Single live birth; Z28.3 Underimmunization status; Z86.16 Personal history of COVID-19
CPT/HCPCS: 36415; 51702; 59025; 59409; 80053; 83735; 84550; 85025; 85027; 96374; 96376; J0595; J0690; J1200; J1885; J2274; J2765; J2795; J3010; J3475; J3490; J7030

== ENCOUNTER → 2021-06-17 17:04 | Day surgery (SDC) | payer MEDICAID, SELFPAY ==
--- NOTE | 2021-06-17 17:27 | SUR.PREOP ---
1725-iv removed, cath tip intact, patient tolerated well
== END ==
LOC: OPS 17:05
PROVIDERS: PCP Nurse Practitioner; Visit Provider Anesthesiology
DX: Z01.818 Encounter for other preprocedural examination (principal)
CPT/HCPCS: 62273

== ENCOUNTER → 2021-10-01 08:54 | Outpatient (BNVA) | payer MEDICAID, SELFPAY | PROVIDERS: PCP Nurse Practitioner; Visit Provider Nurse Practitioner Family | DX: J02.9 Acute pharyngitis, unspecified (principal); R50.9 Fever, unspecified | CPT/HCPCS: 87426; 87880 ==

== ENCOUNTER → 2021-11-02 11:18 | Outpatient (BNVA) | payer MEDICAID, SELFPAY | PROVIDERS: PCP Family Medicine; Visit Provider Family Medicine | DX: Z00.00 Encounter for general adult medical examination without abnormal findings (principal); Z78.9 Other specified health status; R87.619 Unspecified abnormal cytological findings in specimens from cervix uteri | CPT/HCPCS: 87624 ==